=== PATIENT | male | born 1950 | race Caucasian/White ===

== ENCOUNTER 2017-07-21 06:10 | Inpatient (IN) | payer OTHER, MEDICARE ==
[2017-07-09 09:33] LABS: ABSOLUTE BASOPHILS 0.1 thou/uL (0.0-0.2); ABSOLUTE EOSINOPHILS 0.4 thou/uL (0.0-0.7); ABSOLUTE LYMPHOCYTES 1.8 thou/uL (0.8-5.3); ABSOLUTE MONOCYTES 0.7 thou/uL (0.0-1.2); ABSOLUTE NEUTROPHILS 4.8 thou/uL (1.6-8.1); BASOPHILS 0.9 %; EOSINOPHILS 4.8 %; HEMATOCRIT 43.5 % (42.0-52.0); HEMOGLOBIN 14.9 gm/dL (14.0-18.0); LYMPHOCYTES 23.5 %; MCHC 34.2 g/dL (28.0-37.0); MCV 87.5 fL (80.0-100.0); MONOCYTES 9.1 %; MPV 8.4 fl. (7.2-11.1); NUCLEATED RBCS 0 /100WBC; PLATELET COUNT* 144 thou/uL (150-400); POLYS 61.7 %; RBC 4.97 mil/uL (4.50-6.00); RDW-CV 13.8 % (10.5-14.5); WBC 7.9 thou/uL (4.0-11.0)
[2017-07-09 09:55] LABS: APTT 25.1 Seconds (25.0-31.3)
[2017-07-09 09:58] LABS: CALCIUM 9.3 mg/dL (8.5-10.1); CREATININE 1.1 mg/dL (0.6-1.3); POTASSIUM 3.8 mmol/L (3.5-5.1); TOTAL BILIRUBIN 0.8 mg/dL (<0.1-1.0); TOTAL PROTEIN 7.4 g/dL (6.4-8.2)
[2017-07-09 10:47] LABS: ESR (SEDRATE) 12 mm/hr (0-20)
--- NOTE | 2017-07-09 16:41 | EKG ---
[place] [address] ELECTROCARDIOGRAM REPORT Name: NICK JONES Room: PRE IN [facility].#: [id number] Admission: Attend Phys: Kathrin Quiñonez Discharge: Date of : 46 Report #: [id number] THIS REPORT FOR: //name// [facility] Test Date: 2017-07-09 Test Time: 09:44:17 Pat Name: NICK JONES Department: Room: Gender: M Radio Journalist: : 1950 Requested By: Evangelista Plaza Order Number: [id number] Reading MD: Checo Bella Measurements Intervals Bishop Rate: 82 P: 64 MS: 158 QRS: -41 QRSD: 103 T: 25 QT: 378 QTc: 442 Interpretive Statements Sinus rhythm Ventricular premature complex Left anterior fascicular block ST elevation, consider early repolarization Compared to ECG 05/03/2016 06:20:01 Ventricular premature complex(es) now present Electronically Signed On 07-09-2017 16:41:39 ANTENNA RIGGER by Checo Bella [email or web address] <ELECTRONICALLY SIGNED> By: Checo Bella MD, FAC 07/09/17 1641 0944 0944 Checo Bella MD, [facility] /EPI
[2017-07-10 02:06] LABS: GLYCOHEMOGLOBIN (HGB A1C) 5.6 % (4.8-5.6)
[~2017-07-21] VITALS: Ht 177.8 cm; Wt 88.9 kg
[~2017-07-21 06:10] MED LIST: ASPIR 8181 MG PO; ATORVASTATIN CA40 MG PO; BLOOD THINNER; CILOSTAZOL 100100 M1 PO; CLOPIDOGREL75 MG PO; COREG6.25 MG PO; LIPITOR10 MG PO; LOTENSIN20 MG PO; NITROSTAT0.3 MG SL; OMEPRAZOLE20 M1 PO; VITAMIN D2000 UNIT PO; VITAMIN D3400 UNIT PO
[2017-07-21 07:30] VITALS: BP 156/87
[2017-07-21 12:15] VITALS: BP 140/82
[2017-07-21 16:00] VITALS: BP 136/78
[2017-07-21 18:10] LABS: HBsAG-EMPLOYEE EXPOSURE Negative (Negative)
[2017-07-21 20:00] VITALS: BP 136/67
[2017-07-22] VITALS (7 sets, daily range): BP systolic 122–168; BP diastolic 39–92
[2017-07-22 05:23] LABS: HEMATOCRIT 31.5 % (42.0-52.0); HEMOGLOBIN 10.9 gm/dL (14.0-18.0)
--- NOTE | 2017-07-22 06:31 | OP ---
[address] [address] OPERATIVE REPORT Name: NICK JONES Room: [address] IN [facility]#: [id number] Admission: 07/21/17 Attend Phys: Kathrin Quiñonez Discharge: Date of : 46 Report #: [id number] THIS REPORT FOR: //name// CC: Evangelista Villa DICTATED BY: Ronny Guevara DO DATE OF SERVICE: 07/21/2017 PREOPERATIVE DIAGNOSIS: Primary varus osteoarthritis, left knee. POSTOPERATIVE DIAGNOSIS: Primary varus osteoarthritis, left knee. SURGEON: Evangelista Plaza DO CAPACITOR REPAIRER: Ronny Guevara DO; Noel Bean DO OPERATION PERFORMED: Geronimo CR cemented left total knee arthroplasty. IMPLANTS: 1. Geronimo Persona system with a size 9 cruciate retained cemented femoral component. 2. Size G cemented tibial component. 3. A 35 mm 9.0 mm thickness cemented patellar component. 4. A 16 mm medial congruent polyethylene bearing. ANESTHESIA TYPE: General with a local and peripheral block by anesthesia. ESTIMATED BLOOD LOSS: 200 mL. SPECIMENS REMOVED: None. COMPLICATIONS: None apparent. CONDITION: Stable. DISPOSITION: PACU to Ortho floor. INDICATIONS FOR OPERATION: The patient is a pleasant 67-year-old male who has been followed in orthopedic clinic regarding his left knee osteoarthritis. He [address] [address] OPERATIVE REPORT Name: NICK JONES Room: [address] IN [facility].#: [id number] Admission: 07/21/17 Attend Phys: Kathrin Quiñonez Discharge: Date of : 46 Report #: [id number] has attempted and failed conservative therapies over the last 2 years including activity modification, attempted weight loss, home exercises, oral anti-inflammatories, multiple intra-articular steroid injections. Despite trying all these things, the patient continued to have significant symptoms of pain and stiffness of the left knee, which were significantly impacting his quality of life. Therefore, a left total knee arthroplasty was recommended to the patient. Risks, indications, and treatment alternatives were discussed in detail with the patient at the time of his office visit and the patient elected to proceed with operation as planned. OPERATION IN DETAIL: Once again, the patient was identified in preoperative holding area where his written and verbal informed consents were obtained. The patient was taken to operating suite and transferred to the operating table. He was given the benefit of general anesthesia. A well-padded tourniquet was then placed on the left proximal thigh; however, this was not inflated during operation. Left lower extremity was sterilely prepped and draped in the usual fashion. Timeout was performed, everyone in the room was in agreement that he had been given preoperative clindamycin 600 mg and that we were to perform the correct operation on the correct side. Everyone in the room was in agreement. The operation began with a standard midline incision. Sharp dissection was carried out through the skin and subcutaneous tissue to level of the capsule. A new scalpel was then used to make a standard medial parapatellar arthrotomy. A portion of the fat pad as well as the anterior and posterior cruciate ligaments and menisci were excised. Patella was everted. The knee was flexed to approximately 110 degrees. The femoral canal was then accessed utilizing the opening reamer, an intramedullary femoral guide was placed and the cutting guide was set to resect 12 mm off the distal femur at 3 degrees of valgus. The cutting block was held in position with 3 pins. A distal femur cut was made through the cutting block in the usual fashion. Next, we turned our attention to the tibia. External tibial guide was utilized referencing the medial aspect of the tibial tubercle, the talus and the second metatarsal. The tibia cutting block was then held in ____ position and this was confirmed to be appropriate slope. The oscillating saw was then used to make a proximal tibial cut. This was taking about 2 mm from the medial side and 12 mm from the lateral side. The patient's bone block was then removed. The leg was placed into full extension now and a 12 mm spacer was placed into the knee, demonstrated excellent placement of leg and good stability with varus and valgus stressing, however, there was noted to be increased laxity on the medial side. At this time, a Rosas elevator was used to elevate and perform a medial release to the point where varus and valgus testing were much more symmetrical. All pins were then removed and back to the femur and sized this to a size 9. The drill holes were drilled at 3 degrees of external rotation through our sizing block and this was removed and 4-in-1 cutting block was placed and ____ was used to confirm that this would be appropriate cut and this was flushed with anterior cortex with no notching. An oscillating saw was used with 4-in-1 cutting block to make our cuts in a sequential order starting with anterior-[place] [address] OPERATIVE REPORT Name: NICK JONES Room: [address] IN [facility]#: [id number] Admission: 07/21/17 Attend Phys: Kathrin Quiñonez Discharge: Date of : 46 Report #: [id number] anterior chamfer. These cuts were then made and the block was removed and excess bone was removed. The remnants of the ACL and meniscus were then excised. The tibia was then sized to a size G. The tibial trial base plate was secured in place with pins. Femur was then put in place, did a trial with the 14 and 6 mm polyethylene spacers and 16 mm spacer did have a good fit with full extension, full flexion, and good stability throughout range of motion. Our attention was taken to patellar and this was reamed with a Geronimo reamer to a smooth surface. This was sized to a size 35 mm. A button was then drilled through the guide in the usual fashion and the patellar button trial was placed and demonstrated good stability and excellent tracking within the femur. Next, all trial components were removed. The knee was lavaged and posterior capsular block was performed with the pain cocktail. Surgery continued with one stage cementing technique with non-antibiotic cement. The tibial component was covered in layer of cement as was the bony cut surfaces of the tibia. Tibia was then placed and impacted and found to be held in appropriate rotation. Next, femoral component was placed in a similar fashion followed by the patella. All excess cement was then removed and a 16-mm trial tibial component was placed and held in position, although cement was allowed 15 minutes to harden. Once the cement was hardened, the knee was taken throughout range of motion and was found that the 16-mm polyethylene spacer would allow for full extension and flexion and was very stable throughout mid flexion and this was selected as a final component. Before the final component was placed, the knee was copiously irrigated with normal saline and excess debris and cement was removed. The final spacer was then placed and was found to be seated and locked into position and then the leg was taken throughout full range of motion and was found to have excellent stability. Next, TXA solution was slowly delivered into the knee and allowed to coagulate for 5 minutes. Surgery continued with closure of the capsule with #1 Vicryl and #1 Ticron in [id number] fashion. Next, subcutaneous tissue was closed with 2-0 Monocryl simple inverted sutures and then a running Stratafix and Dermabond were used to reapproximate the skin. A Mepilex, soft roll, and Phil wrap dressing was applied. The patient was taken to the recovery room in stable condition. Dr. Plaza was present for all critical aspects of surgery. Needle, instruments, sponge counts were correct. <ELECTRONICALLY SIGNED> By: Evangelista Plaza DO 07/22/17 0631 1010 1216Cradha Plaza DO /nt
--- NOTE | 2017-07-22 13:14 | S ---
[address] [address] SURGICAL PATH RPT PROCEDURE Name: NICK HUMPHREY Room: [address] IN [facility].#: [id number] Admission: 07/21/17 Date of : 46 Discharge: Report #: [id number] Path Case #: [id number] PATHOLOGY REPORT COLLECTION DATE: 07/21/2017 RECEIVED DATE: 07/21/2017 SUBMITTING PHYS: Dr. Evangelista Plaza OTHER PHYS: Dr. Pete Nixon SPECIMEN(S) RECEIVED: A.Left knee bone and tissue * * * * * * * * * * * * FINAL DIAGNOSIS: Left knee bone and tissue, total knee replacement: - Benign synovium and meniscus and benign bone and cartilage with severe degenerative changes. (TEX:pit; 07/22/2017) PATHOLOGIST: Nato Schwarz M.D. REPORT ELECTRONICALLY SIGNED BY: Nato Schwarz M.D. DATE/TIME: 07/22/2017 13:11 * * * * * * * * * * * * GROSS PATHOLOGY: Received in formalin labeled "Nick Humphrey, left knee bone and tissue," are multiple segments of bone, including tibial plateau, measuring 10.5 x 8.2 x 2.6 cm in aggregate dimensions admixed with soft tissue; meniscus is present. The specimen shows focal eburnation of the articular surfaces. Histology Manager sections of bone and soft tissue are submitted in cassette A1, following decalcification. (CAA; 07/21/2017) CLINICAL HISTORY: Left knee degenerative joint disease INITIAL CPT CODE(S): A; 71493, 28925 Professional services [place] [address] Technical services performed by [facility] at [address] [place] [address] [address] [address]. [place] [address] SURGICAL PATH RPT PROCEDURE Name: NICK HUMPHREY Room: [address] IN ..#: [id number] Admission: 07/21/17 Date of : 46 Discharge: Report #: [id number] Path Case #: [id number] [facility] [address] [place] [address] PHONE: [phone] DIRECTOR: James Byers M.D. * * * END OF REPORT * * *
[2017-07-23] VITALS (7 sets, daily range): BP systolic 122–159; BP diastolic 39–74
[2017-07-23 04:32] LABS: HEMATOCRIT 30.5 % (42.0-52.0); HEMOGLOBIN 10.5 gm/dL (14.0-18.0)
[2017-07-23] MEDS ORDERED: COLACE 100 MG100 MG PO (08:45)
[2017-07-23] MEDS ORDERED: ELIQUIS2.5 MG PO (16:05)
[2017-07-23] MEDS ORDERED: OXYCODONE HCL 55 MG PO (16:06)
[2017-07-23] MEDS ORDERED: COLACE100 MG PO (16:14)
== END 2017-07-23 16:55 | disposition home health service (06) | DRG 470 ==
LOC: M.TBA 06:10 → M.ORTHSURG 06:10 → M.PRE 06:24 → M.ORTHSURG 11:13 → M.PRE 11:46 → M.ORTHSURG 07-23 16:55
PROVIDERS: Orthopaedic Surgery; Specialist; ADMIT Internal Medicine
PROC: 0SRD0J9 Replacement of Left Knee Joint with Synthetic Substitute, Cemented, Open Approach (ICD-10-PCS; principal; 2017-07-21)
DX: M17.12 Unilateral primary osteoarthritis, left knee (principal); I10 Essential (primary) hypertension; I25.10 Atherosclerotic heart disease of native coronary artery without angina pectoris; K21.9 Gastro-esophageal reflux disease without esophagitis; H91.93 Unspecified hearing loss, bilateral; M06.9 Rheumatoid arthritis, unspecified; I73.9 Peripheral vascular disease, unspecified; Z79.82 Long term (current) use of aspirin; Z88.0 Allergy status to penicillin; Z95.5 Presence of coronary angioplasty implant and graft; Z82.49 Family history of ischemic heart disease and other diseases of the circulatory system; Z87.891 Personal history of nicotine dependence; Z79.899 Other long term (current) drug therapy

== ENCOUNTER → 2018-05-18 | Outpatient (CLI) | payer OTHER, MEDICARE ==
[~2018-05-18] MED LIST changes: +COLACE 100 MG100 MG PO; +COLACE100 MG PO; +ELIQUIS2.5 MG PO; +OXYCODONE HCL 55 MG PO
--- NOTE | 2018-05-20 15:56 | 2DMMODE ---
[place] [address] 2 D/M-MODE ECHOCARDIOGRAM Name: NICK JONES Room: [facility]#: [id number] Admission: 05/18/18 Attend Phys: Cesar Nixon, Discharge: Date of : 46 Date of Service: 05/20/18 1556 Report #: [id number] THIS REPORT FOR: //name// APPROVED REPORT Study performed: 05/18/2018 08:19:45 EXAM: Limited 2D Echocardiogram Patient Location: Out-Patient BSA: 2.11 HR: 70 bpm BP: 170/94 mmHg Indications Dyspnea 2D Dimensions IVSd: 12.09 (7-11mm) LVOT Diam: 20.81 (18-24mm) LVDd: 44.01 mm PWd: 12.07 (7-11mm) Ascending Ao: 28.06 (22-36mm) LVDs: 30.65 (25-40mm) Aortic Root: 32.33 mm Left Ventricle The left ventricle is normal size. There is normal LV segmental wall motion. Mild to moderate concentric left ventricular hypertrophy. LVEF is 55-60%. Right Ventricle The right ventricle is normal size. The right ventricular systolic function is normal. Aortic Valve Aortic valve leaflets are sclerotic with decreased opening. No aortic regurgitation is present. Severity of Aortic stenosis ,was not evaluated, no Doppler was performed Mitral Valve There is no mitral valve regurgitation noted. No evidence of mitral valve stenosis. <Conclusion> Mild to moderate concentric left ventricular hypertrophy. LVEF is 55-60%. Aortic valve leaflets are sclerotic [place] [address] 2 D/M-MODE ECHOCARDIOGRAM Name: NICK JONES Room: [facility]#: [id number] Admission: 05/18/18 Attend Phys: Cesar Nixon, Discharge: Date of : 46 Date of Service: 05/20/181555 Report #: [id number] Severity of Aortic stenosis ,was not evaluated, no Doppler was performed Recommend complete echo <ELECTRONICALLY SIGNED> By: Jose Yoder MD, FACC 05/20/181555 55 55 Jose Yoder MD, FACC /INF
== END ==
LOC: M.CRD 07:25
DX: I51.7 Cardiomegaly (principal); I35.0 Nonrheumatic aortic (valve) stenosis

== ENCOUNTER → 2021-04-10 | Outpatient (CLI) | payer OTHER ==
--- NOTE | 2021-04-10 15:07 | 2DMMODE ---
[place] [address] 2 D/M-MODE ECHOCARDIOGRAM Name: NICK JONES Room: [facility]#: [id number] Admission: 04/10/21 Attend Phys: Checo Bella, Discharge: Date of : 46 Date of Service: 04/10/21 1507 Report #: [id number] THIS REPORT FOR: cc: Cesar Nixon MD, Dean L. MD Blick, David R. MD [facility] ~ APPROVED REPORT Study performed: 04/10/2021 13:38:33 EXAM: Comprehensive 2D, Doppler, and color-flow Echocardiogram Patient Location: Out-Patient BSA: 2.13 HR: 69 bpm BP: 168/87 mmHg Other Information Study Quality: Good Indications CAD 2D Dimensions IVSd: 15.01 (7-11mm) LVOT Diam: 22.93 (18-24mm) LVDd: 35.85 mm PWd: 12.35 (7-11mm) Ascending Ao: 30.41 (22-36mm) LVDs: 19.29 (25-40mm) Aortic Root: 26.94 mm Volumes Left Atrial Volume (Systole) LA ESV Index: 13.50 mL/m2 Aortic Valve AoV Peak Higinio.: 2.15 m/s AO Peak Gr.: 18.56 mmHg LVOT Max P.99 mmHg AO Mean Gr.: 10.17 mmHg LVOT Mean P.76 mmHg LVOT Max V: 1.00 m/s AO V2 VTI: 43.90 cm LVOT Mean V: 0.60 m/s JASIEL (VTI): 2.08 cm2 LVOT V1 VTI: 22.08 cm Mitral Valve E/A Ratio: 0.60 [place] [address] 2 D/M-MODE ECHOCARDIOGRAM Name: NICK JONES Room: [facility]#: [id number] Admission: 04/10/21 Attend Phys: Checo Bella, Discharge: Date of : 46 Date of Service: 04/10/21 1507 Report #: [id number] MV Decel. Time: 294.22 ms MV E Max Higinio.: 0.57 m/s MV PHT: 85.32 ms MVA (PHT): 2.58 cm2 TDI E/Lateral E': 6.33 E/Medial E': 5.70 Medial E' Higinio.: 0.10 m/s Lateral E' Higinio.: 0.09 m/s Pulmonary Valve PV Peak Higinio.: 0.93 m/s PV Peak Gr.: 3.47 mmHg Tricuspid Valve RAP Estimate: 5.00 mmHg TR Peak Gr.: 22.49 mmHg RVSP: 27.49 mmHg PA Pressure: 27.49 mmHg Left Ventricle The left ventricle is normal size. There is normal LV segmental wall motion. Mild concentric left ventricular hypertrophy. Left ventricular systolic function is normal. The left ventricular ejection fraction is within the normal range. LVEF is 55-60%. Grade I - abnormal relaxation pattern. Right Ventricle The right ventricle is normal size. The right ventricular systolic function is normal. Atria The left atrium size is normal. The right atrium size is normal. Aortic Valve Aortic valve is calcified. No aortic regurgitation is present. Mild aortic stenosis. Mitral Valve Mild mitral annular calcification. The mitral valve is normal in structure. There is no mitral valve regurgitation noted. No evidence of mitral valve stenosis. Tricuspid Valve The tricuspid valve is normal in structure. Mild [place] [address] 2 D/M-MODE ECHOCARDIOGRAM Name: ROBERTNICK Ac Room: [facility]#: [id number] Admission: 04/10/21 Attend Phys: Checo Bella, Discharge: Date of : 46 Date of Service: 04/10/21 1507 Report #: [id number] Pulmonic Valve Pulmonic valve is not well visualized. There is trace pulmonic valvular regurgitation. Great Vessels The aortic root is normal in size. IVC is normal in size and collapses >50% with inspiration. Pericardium There is no pericardial effusion. <Conclusion> LVEF is 55-60%. Mild concentric left ventricular hypertrophy. Mild aortic stenosis. <ELECTRONICALLY SIGNED> By: Harjit Bass MD, [facility] 04/10/21 1507 1507 1507 Harjit Bass MD, FACC /INF
--- NOTE | 2021-04-11 14:07 | CARDNUC ---
[place] [address] CARDIAC NUCLEAR IMAGING REPORT Name: NICK JONES Room: [facility]#: [id number] Admission: 04/10/21 Attend Phys: Checo Bella, Discharge: Date of : 46 Date of Service: 04/11/21 1407 Report #: [id number] THIS REPORT FOR: cc: Cesar Nixon MD, Dean L. MD Biggs, F. Douglas MD [facility] ~ APPROVED REPORT Imaging Protocol: Rest Tc-99m/Stress Tc-99m 1 day Study performed: 04/10/2021 09:07:48 Indication: Dyspnea Patient Location: Out-Patient Stress Tech: MAMI KOWALSKI Stress Nurse: Shira Pool RN NM Tech:HUMA Rivera Ht: 5 ft 10 in Wt: 209 lbs BSA: 2.13 m2 BMI: 29.98 Medical History Medical History: CAD s/p CABG, CAD s/p stent, CAD s/p CT, Carotid artery disease, Former Smoker, HTN, Hyperlipidemia, PVD Medications: asa-81, benazepril, carvedilol, cilostazol, clopidogrel, lasix Allergies: clopidogrel, penicillin, atorvastatin Cardiac Risk Factors: Age, FHX of CAD, HTN, Hyperlipidemia, Past Smoker,, PVD Previous Cardiac Procedures: CABG, PCI, Myocardial infarction Exercise History: Indeterminate Meds Held (24 hrs): carvedilol Resting Data Rest SPECT myocardial perfusion imaging was performed in supine position 30 minutes following the intravenous injection of 9.0 mCi of Tc-99m Sestamibi. Time of rest injection: 804 Date: 04/10/2021 The images were gated to evaluate regional wall motion and calculate left ventricular ejection fraction. Administration Route: IV Administration Site: Right [place] [address] CARDIAC NUCLEAR IMAGING REPORT Name: NICK JONES [id number] Admission: 04/10/21 Attend Phys: Checo Bella, Discharge: Date of : 46 Date of Service: 04/11/21 1407 Report #: [id number] Pharmacologic stress test was performed by injecting Regadenoson 0.4 mg IV push over 10-15 seconds immediately followed by the intravenous injection of 33.1 mCi of Tc-99m Sestamibi. Time of stress injection: 919 Date: 04/10/2021 Administration Route: IV Administration Site: Right Hand Gated Stress SPECT was performed 40 minutes after stress injection. The images were gated to evaluate regional wall motion and calculate left ventricular ejection fraction. Prone imaging was performed. Stress Test Details Stress Test: Pharmacologic stress testing performed using 0.4 mg of regadenoson per 5 mL given IV over 10 seconds. Reason for pharmacologic stress test: physical limitation. HR Max Heart Rate (APMHR): 148 bpm Resting HR: 69 bpm Target HR (85% APMHR): 125 bpm Max HR Achieved: 110 bpm % of APMHR: 74 Recovery HR: 97 bpm HR response to stress: Normal HR response to stress BP Resting BP: 174/104 mmHg Max BP: 173/79 mmHg Recovery BP: 168/87 mmHg BP response to stress: Normal blood pressure response to stress. ECG Resting ECG: Sinus Rhythm, LAFB Stress ECG: Sinus Rhythm, LAFB ST Change: None Arrhythmia: None Recovery ECG: Sinus Rhythm, LAFB Recovery ST Change: None Recovery Arrhythmia: None Clinical Reason for Termination: Completed protocol Stress Symptoms: None Nurse Comments cannot walk up hill [place] [address] CARDIAC NUCLEAR IMAGING REPORT Name: NICK JONES Room: [facility]#: [id number] Admission: 04/10/21 Attend Phys: Checo Bella, Discharge: Date of : 46 Date of Service: 04/11/21 1407 Report #: [id number] Stress ECG Conclusion Normal hemodynamic response to pharmacologic stress. Clinical: Non-ischemic Non-diagnostic pharmacologic EKG stress due to failure to attain target HR. Study Quality Study: Good Artifact: Mild Diaphragmatic artifact Lung Uptake: Normal Study Data At rest, the left ventricular ejection fraction was 70%.. Post stress, the left ventricular ejection was 62%.. SSS: 11 SRS: 12 SDS: -1 TID = 1.11. Perfusion The resting study demonstrated a small mild apical defect as well as a small mild inferior defect. The post stress images were unchanged from those seen at rest and are as described above. Prone images were obtained and they demonstrated only a very small very mild inferior defect. There were no reversible defects seen there was no evidence of myocardial ischemia Images were reviewed using C-sam. Wall Motion Normal left ventricular wall motion. Nuclear Conclusion ECG Findings: non-diagnostic Clinical Findings: negative for ischemia Nuclear Findings: negative for ischemia Exercise Capacity: not assessed Left Ventricular Function: normal Risk Study: low Normal study. No scintigraphic evidence for myocardial ischemia or scar. <Conclusion> Normal hemodynamic response to pharmacologic stress. Clinical: [place] [address] CARDIAC NUCLEAR IMAGING REPORT Name: NICK JONES Room: [facility]#: [id number] Admission: 04/10/21 Attend Phys: Checo Bella, Discharge: Date of : 46 Date of Service: 04/11/21 1407 Report #: [id number] Non-diagnostic pharmacologic EKG stress due to failure to attain target HR. <ELECTRONICALLY SIGNED> By: Ross Ross MD, FACC 04/11/211406 06 06 Ross Ross MD, FACC /INF
== END ==
LOC: M.CRD 03-14 16:51 → M.NUC 07:33
PROVIDERS: ATTEND Internal Medicine Cardiovascular Disease
DX: I08.3 Combined rheumatic disorders of mitral, aortic and tricuspid valves (principal); I25.10 Atherosclerotic heart disease of native coronary artery without angina pectoris